=== PATIENT | female | born 1980 | race Caucasian/White ===

== ENCOUNTER 2016-06-08 21:57 | Emergency (ER) | payer SELFPAY ==
[2016-06-08 22:00] VITALS: BP 160/98; PULSE 96; TEMP 98.4
[2016-06-08 22:19] VITALS: BMI 26.9
[2016-06-08] MEDS ORDERED: OXYCODONE (OxyCONTIN) 20 MG TAB PO ONE (22:30)
--- NOTE | 2016-06-08 22:38 | EDPRACDOC ---
- General Information Information Source: Patient - History of Present Illness Onset: This morning Location: Reports: Left Mechanism: Reports: Other (SWELLING TO DORSUM OF HAND UPON AWAKENING; THINKS SHE SLEPT ON HER HAND) Associated Signs & Symptoms: Reports: None <Denis Angeles - Last Filed: 06/08/16 22:36> <Lata Lowe - Last Filed: 06/09/16 12:38> - General Information Chief Complaint: Hand Pain Stated Complaint: LT HAND SWOLLEN & PAIN Time Seen by Provider: 06/08/16 22:28 Home Medications: Home Medications Oxycodone HCl [Roxicodone] 5 mg PO Q6H #15 tablet 06/09/16 Allergies/Adverse Reactions: Allergies Allergy/AdvReac Type Severity Reaction Status Date / Time hydrocodone Allergy Anaphylaxis Verified 06/08/16 22:20 * ketorolac [From Toradol] Allergy Hives* Verified 06/08/16 22:20 topiramate [From Topamax] Allergy Anaphylaxis Verified 06/08/16 22:20 * ED Past Medical History - History Reviewed Yes Nurses notes reviewed and agree except as marked - Patient Medical History Psychological History: Denies: Depression Surgical History: Reports: Hysterectomy - Social Medical History Smoking Status: Heavy tobacco smoker (5 or more cigarettes/day or daily pipe/ cigar) <Denis Angeles - Last Filed: 06/08/16 22:36> EDM Review of Systems - Review of Systems ROS Negative Except as Marked: Yes All systems reviewed and were negative except as marked <Denis Angeles - Last Filed: 06/08/16 22:36> - Physical Exam Constitutional: No apparent distress Oriented to: Time, Person, Place Last recorded Vital Signs: Last Vital Signs Temp 98.4 F 06/08/16 21:57 Pulse 96 06/08/16 21:57 Resp 18 06/08/16 21:57 BP 160/98 06/08/16 21:57 Pulse Ox 99 06/08/16 21:57 Oxygen Pulse Oxygen Saturation 99 O2 Device Room Air Oxygen Flow Rate Fraction of Inspired Oxygen ( FIO2) <Denis Angeles - Last Filed: 06/08/16 22:36> - Physical Exam Last recorded Vital Signs: Last Vital Signs Temp 98.4 F 06/08/16 21:57 Pulse 96 06/08/16 21:57 Resp 18 06/08/16 21:57 BP 160/98 06/08/16 21:57 Pulse Ox 99 06/08/16 21:57 Oxygen Pulse Oxygen Saturation 99 O2 Device Room Air Oxygen Flow Rate Fraction of Inspired Oxygen ( FIO2) <Lata Lowe - Last Filed: 06/09/16 12:38> ED Hand Problem Physical Exam - Musculoskeletal Hand: Swelling. negative: Deformity Wrist: Normal Digit: Normal Digit Strength: Normal Nail: Normal Nailbed: Normal Soft Tissue: Normal Distal Function/Circulation: Normal, Capillary Refill. negative: Motor Deficit , Pulse Deficit, Sensory Deficit <Denis Angeles - Last Filed: 06/08/16 22:36> - Additional Information PT SAID THAT OXY ER WAS TOO EXPENSIVE. SHE BROUGHT HER RX BACK AND SHE WAS GIVEN A RX FOR OXY IR. <Lata Lowe - Last Filed: 06/09/16 12:38> Decision Time to Discharge: 11:20 - Departure Yes I personally saw and evaluated the patient. Disposition: Home Education/Counseling Given To: Patient Education/Counseling Given Regarding: Diagnosis, Treatment, Prognosis <Denis Angeles - Last Filed: 06/08/16 22:36> <Lata Lowe - Last Filed: 06/09/16 12:38> - Departure Condition: Good Final Diagnosis: LEFT HAND SWELLING Instructions: Ganglion Cysts (ED) Referrals: None,No Provider [Primary Care Provider] - One Week Gustavo Shukla MD [Staff Physician] - One Week Prescriptions: Continue Oxycodone HCl [Roxicodone] 5 mg PO Q6H #15 tablet
--- NOTE | 2016-06-08 23:09 | DIRPT ---
CLINICAL DATA: 36-year-old female with injury to the left hand. EXAM: LEFT HAND - COMPLETE 3+ VIEW COMPARISON: None. FINDINGS: There is no evidence of fracture or dislocation. There is no evidence of arthropathy or other focal bone abnormality. Soft tissues are unremarkable. IMPRESSION: Negative. Electronically Signed By: Israel Trent M.D. On: 06/08/2016 23:07
== END 2016-06-08 23:24 | disposition home or self-care (01) ==
LOC: ED 21:57
DX: M79.89 Other specified soft tissue disorders (principal)
CPT/HCPCS: 73130; 99283; J3490